=== PATIENT | female | born 1965 | race Caucasian/White ===

== ENCOUNTER 2016-08-28 00:40 | Emergency (ER) | payer OTHER ==
[~2016-08-28] VITALS: Ht 160 cm; Wt 109.0 kg
[2016-08-28] MEDS ORDERED: SODIUM CHLORIDE FLUSH 10ML SYR IVF ONE (02:00)
[2016-08-28] MEDS ORDERED: SODIUM CHLORIDE 0.9% 1,000ML IVBOLUS ONE (02:00)
[2016-08-28] MEDS ORDERED: ONDANSETRON 2MG/ML, 2ML IVPush ONE (02:00)
[2016-08-28] MEDS ORDERED: ONDANSETRON 2MG/ML, 2ML ONE ×2 (02:00→02:47)
[2016-08-28] MEDS ORDERED: MORPHINE SULFATE 4 MG/ML, 1ML IVPush PRN (02:00)
[2016-08-28] MEDS ORDERED: MORPHINE SULFATE 4 MG/ML, 1ML ONE (02:00)
[2016-08-28 02:07] LABS: DIFF TOTAL CELLS COUNTED 100 CELL DIFF
[2016-08-28 02:09] LABS: VERIFY COUNTS? YES
[2016-08-28 02:20] LABS: BLOOD UREA NITROGEN 19 mg/dL (7-18)
[2016-08-28 02:23] LABS: ASPARTATE AMINO TRANSFERASE 17 U/L (15-37)
[2016-08-28] MEDS ORDERED: OMNIPAQUE 350 MG/ML, 100ML BOTTLE ONE (04:01)
[2016-08-28 05:34] VITALS: BP 134/83
== END 2016-08-28 05:38 | disposition home or self-care (01) ==
LOC: ED 05:31
DX: K52.29 Other allergic and dietetic gastroenteritis and colitis (principal); R19.7 Diarrhea, unspecified; R10.84 Generalized abdominal pain; R11.2 Nausea with vomiting, unspecified; E86.0 Dehydration; E86.9 Volume depletion, unspecified; I10 Essential (primary) hypertension; J45.909 Unspecified asthma, uncomplicated
CPT/HCPCS: 36415; 74177; 80053; 83690; 84703; 85025; 87324; 89055; 96361; 96374; 99285; J2405; J7030; Q9967